=== PATIENT | female | born 1980 | race Caucasian/White ===

== ENCOUNTER 2016-08-29 14:33 | Outpatient (CLI) | payer OTHER ==
[2016-08-29 14:58] LABS: BASOPHILS % (AUTO) 0.4 % (0.0-3.0); EOSINOPHILS # (AUTO) 0.1 K/ul (0.0-0.7); EOSINOPHILS % (AUTO) 1.3 % (0.0-7.0); HEMATOCRIT 46.4 % (37.0-47.0); HEMOGLOBIN 16.1 g/dl (12.0-16.0); IMMATURE GRANULOCYTE % (AUTO) 0.7 % (0.0-5.0); LYMPHOCYTES # (AUTO) 2.4 K/uL (0.60-3.4); LYMPHOCYTES % (AUTO) 25.5 (10.0-50.0); MEAN CORPUSCULAR HEMOGLOBIN 31.6 pg (27.0-31.0); MEAN CORPUSCULAR HGB CONC 34.7 (31.8-35.4); MEAN CORPUSCULAR VOLUME 91.2 fl (81.0-99.0); MONOCYTES # (AUTO) 0.7 K/uL (0.4-2.0); MONOCYTES % (AUTO) 7.9 (0-10); NEUTROPHILS # (AUTO) 5.9 K/ul (2.0-6.9); NEUTROPHILS % (AUTO) 64.2; PLATELET COUNT 271 10^3/uL (140-440); RED BLOOD COUNT 5.09 10^6/ul (4.20-5.40); WHITE BLOOD COUNT 9.21 K/ul (4.6-10.2)
--- NOTE | 2016-08-29 15:00 | DI ---
EXAM: Radiographs, left shoulder HISTORY: Left shoulder pain. COMPARISON: None available. TECHNIQUE: Two views. FINDINGS: Bone mineralization is normal. Bone island noted in the glenoid. There is no fracture o r dislocation. Mild acromioclavicular joint space narrowing noted. Subchondral cyst is seen in the acromion. No focal soft tissue abnormality is seen. IMPRESSION: Mild acromioclavicular osteoarthritis.
[2016-08-29 15:16] LABS: ALBUMIN/GLOBULIN RATIO 1.03; ANION GAP 11.8; BILIRUBIN,TOTAL 0.56 mg/dL (0.00-1.20); BUN/CREATININE RATIO 9.63; CALCIUM 9.5 mg/dL (8.2-10.2); CHOL/HDL RATIO 2.7 (4.5-5.5); CREATININE 0.83 mg/dL (0.60-1.30); POTASSIUM 3.8 mmol/L (3.5-5.10); TOTAL PROTEIN 7.9 g/dL (6.4-8.2)
== END 2016-08-29 14:34 | disposition home or self-care (01) ==
LOC: RAD 14:33
PROVIDERS: ATTEND Nurse Practitioner Family
DX: M25.512 Pain in left shoulder (principal); F41.9 Anxiety disorder, unspecified; E78.5 Hyperlipidemia, unspecified
CPT/HCPCS: 36415; 80053; 80061; 85025

== ENCOUNTER 2016-09-19 10:25 | Outpatient (CLI) ==
[2016-09-19 10:53] LABS: BASOPHILS % (AUTO) 0.5 % (0.0-3.0); EOSINOPHILS # (AUTO) 0.1 K/ul (0.0-0.7); EOSINOPHILS % (AUTO) 1.3 % (0.0-7.0); HEMATOCRIT 42.7 % (37.0-47.0); IMMATURE GRANULOCYTE % (AUTO) 0.2 % (0.0-5.0); LYMPHOCYTES # (AUTO) 2.3 K/uL (0.60-3.4); LYMPHOCYTES % (AUTO) 27.5 (10.0-50.0); MEAN CORPUSCULAR HGB CONC 35.1 (31.8-35.4); MONOCYTES # (AUTO) 0.6 K/uL (0.4-2.0); MONOCYTES % (AUTO) 7.3 (0-10); NEUTROPHILS # (AUTO) 5.3 K/ul (2.0-6.9); NEUTROPHILS % (AUTO) 63.2; PLATELET COUNT 232 10^3/uL (140-440); RED BLOOD COUNT 4.69 10^6/ul (4.20-5.40); WHITE BLOOD COUNT 8.35 K/ul (4.6-10.2)
[2016-09-19 11:04] LABS: BILIRUBIN,URINE Negative (NEGATIVE); KETONES,URINE Negative (NEGATIVE); LEUKOCYTE ESTERASE ,URINE Trace (NEGATIVE); NITRITE,URINE Negative (NEGATIVE); PROTEIN,URINE 1+ (NEGATIVE); URINE, BLOOD Trace-intact (NEGATIVE)
[2016-09-19 11:07] LABS: ALBUMIN 3.8 g/dL (3.4-5.0); ALBUMIN/GLOBULIN RATIO 1.09; ANION GAP 11.8; BILIRUBIN,TOTAL 0.74 mg/dL (0.00-1.20); BUN/CREATININE RATIO 13.15; CHOL/HDL RATIO 2.8 (4.5-5.5); CREATININE 0.76 mg/dL (0.60-1.30); POTASSIUM 3.8 mmol/L (3.5-5.10); TOTAL PROTEIN 7.3 g/dL (6.4-8.2)
[2016-09-19 11:20] LABS: ADD URINE MICROSCOPIC YES
[2016-09-19 11:21] LABS: BACTERIA,URINE TRACE (NOT PRESENT)
== END 2016-09-19 10:26 | disposition home or self-care (01) ==
LOC: LAB 10:25
PROVIDERS: ATTEND Nurse Practitioner Family
DX: E78.5 Hyperlipidemia, unspecified (principal); F41.9 Anxiety disorder, unspecified; R31.9 Hematuria, unspecified
CPT/HCPCS: 36415; 80053; 80061; 81001; 85025; 87086; 87186

== ENCOUNTER 2017-05-09 09:43 | Outpatient (CLI) ==
--- NOTE | 2017-05-09 11:23 | DI ---
EXAM: Four views of the right knee. History: Right knee pain. Comparison: Right knee radiograph 04/24/2016 Findings: No acute fracture or dislocation. No abnormal calcifications or radiopaque foreign bodies . Joint spaces are preserved. Impression: Unremarkable exam
--- NOTE | 2017-05-09 11:25 | DI ---
EXAM: Two views of the chest. History: Obesity, chest pain. Comparison: None available. Findings: Heart size is within normal limits. No focal consolidation. No appreciable pleural fluid and no pneumothorax. No acute osseous abnormalities. Impression: No acute cardiopulmonary process
== END 2017-05-09 09:44 | disposition home or self-care (01) ==
LOC: LAB 09:43
PROVIDERS: ATTEND Nurse Practitioner Family
DX: E78.5 Hyperlipidemia, unspecified (principal); M25.561 Pain in right knee; E66.9 Obesity, unspecified
CPT/HCPCS: 36415; 80053; 80061; 84439; 84443; 85025; 93005; 93010

== ENCOUNTER 2017-05-21 06:38 | Outpatient (CLI) ==
--- NOTE | 2017-05-22 09:54 | ECHOSTRESS ---
Date of Exam: 05/21/17 Ordering Physician: PHILIP GUTIERREZ DIRECTOR OF RECRUITMENTIngridC Reason for Echo: ABNORMAL EKG, STRESS TEST--NO ISCHEMIA M-Mode Normal Adult Results LV Dimensions Normal Adult Results AoV Opening excursions >1.6 LVEDD-base- 3.5-5.8 Ao root dimensions 2.0-3.7 LVESD-base- 3.1-4.6 L. Atrium dimensions 1.9-3.8 Post. Wall thickness 0.8-1.1 IV septum (thickness) 0.7-1.2 Post. Wall excursion 0.72-1.3 Septal motion Systolic motion R. Ventricular cavity 1.5-2.0 LVEF 60% Paradoxical septal wall motion 2-D: NORMAL LEFT VENTRICULAR CONTRACTILITY--RESTING AND POST EXERCISE M-MODE: MV: AV: TV: PV: CHAMBER SIZE: WALL MOTION: NORMAL LEFT VENTRICULAR CONTRACTILITY--RESTING AND POST EXERCISE PERICARDIUM: INTERPRETATION: 1. NORMAL LEFT VENTRICULAR CONTRACTILITY--RESTING AND POST EXERCISE MTDD
--- NOTE | 2017-05-22 10:06 | STRESSECHO ---
Date of Test: 05/21/17 Reason for Exam: ABNORMAL EKG, PALPITATIONS Ordering Physician: PHILIP GUTIERREZ LDR NURSE-C Current Medications: NONE Physical Findings: S1, S2, NO S3 Resting EKG: SINUS RHYTHM/ NO ACUTE CHANGES Target Heart Rate: 158/186 STAGE MPH/GRADE HEART RATE BPM BLOOD PRESSURE mmhg RHYTHM S-T SEGMENT +/- UP DOWN SYMPTOMS,COMMENTS At Rest 66 118/78 SR X NONE 1 1.7/10% 130 128/80 SR X NONE 2 2.5/12% 3 3.4/14% 4 4.2/16% 5 5.0/18% Immediately after 156 SR X FATIGUE Durations of Exercise: 4:59 Maximum Heart Rate Reached: 156 Reason for Termination: FATIGUE 4 MINUTES POST EXERCISE: HR 97 BPM, BP 122/78 MMHG, SR, +/-, NO COMMENTS INTERPRETATION: 98% OXYGEN SATURATION WITH EXERCISE ON ROOM AIR 1. NO EVIDENCE OF ISCHEMIA BY ST-T WAVE 2. NO CHEST PAIN OR CHEST DISCOMFORT 3. BLOOD PRESSURE RESPONSE NORMAL 4. NO ARRHYTHMIAS NORMAL LEFT VENTRICULAR CONTRACTILITY RESTING AND POST EXERCISE MTDD
== END 2017-05-21 06:39 | disposition home or self-care (01) ==
LOC: CAR 06:38
PROVIDERS: ATTEND Nurse Practitioner Family
DX: R94.31 Abnormal electrocardiogram [ECG] [EKG] (principal)

== ENCOUNTER 2017-12-25 13:58 | Outpatient (CLI) ==
--- NOTE | 2017-12-25 16:31 | DI ---
EXAM: Three views of the right ankle. History: Right ankle pain and effusion. Findings: No acute fracture or dislocation. No abnormal calcifications or radiopaque foreign bodies . Mild to moderate lateral soft tissue swelling. Joint spaces are preserved. Impression: No acute osseous abnormality. Lateral soft tissue swelling
== END 2017-12-25 13:59 | disposition home or self-care (01) ==
LOC: RAD 13:58
PROVIDERS: ATTEND Emergency Medicine
DX: M25.471 Effusion, right ankle (principal)

== ENCOUNTER 2018-01-16 07:40 | Outpatient (CLI) | END 2018-01-16 07:41 | disposition home or self-care (01) | LOC: LAB 07:40 | PROVIDERS: ATTEND Nurse Practitioner Family | DX: R25.2 Cramp and spasm (principal) | CPT/HCPCS: 36415; 80053 ==

== ENCOUNTER 2018-01-28 07:21 | Outpatient (CLI) | END 2018-01-28 07:22 | disposition home or self-care (01) | LOC: LAB 07:21 | PROVIDERS: ATTEND Nurse Practitioner Family | DX: E87.1 Hypo-osmolality and hyponatremia (principal); R94.5 Abnormal results of liver function studies | CPT/HCPCS: 36415; 80053 ==

== ENCOUNTER 2018-11-14 20:48 | Emergency (ER) ==
[2018-11-14 21:22] VITALS: TEMP 98.5; BMI 42.5
--- NOTE | 2018-11-14 22:05 | CT ---
EXAM: CT head without contrast. HISTORY: Left-sided numbness. PROCEDURE: Contiguous axial CT images of the head without contrast with coronal and sagittal reforma ts. FINDINGS: The ventricles and basal cisterns are normal in size and configuration. No evidence of ma ss or midline shift. No intracranial hemorrhage or evidence of large vessel infarct. No extra-axial fluid collection. The paranasal sinuses and mastoid air cells are well-aerated and normal in appear ance. Impression: Negative CT of the head.
--- NOTE | 2018-11-14 22:32 | CT ---
EXAM: CT maxillofacial without contrast. HISTORY: Left facial numbness. PROCEDURE: Contiguous axial CT images of the face and orbits without contrast with coronal and sagit joy reformats. FINDINGS: The bones are intact with no evidence of fracture. The temporomandibular joints are mainta ined. The orbits are normal in appearance. The paranasal sinuses and mastoid air cells are normal i n appearance. Impression: Negative CT of the face and orbits.
[2018-11-14] MEDS ORDERED: ZESTRIL PO STA (22:35)
[2018-11-14] MEDS ORDERED: ASPIRIN CHEWABLE PO STA (22:36)
--- NOTE | 2018-11-14 22:38 | ED.PDOC ---
General ED Provider: Dr. JOSE DYSON-ER Chief Complaint: Non-specific Complaint Stated Complaint: i was eating and my left cheek was numb Time Seen by Physician: 20:50 Mode of Arrival: Walk-In Information Source: Patient Exam Limitations: No limitations Primary Care Provider: DIAMANTE MAYNARD Nursing and Triage Documentation Reviewed and Agree: Yes Does patient meet sepsis criteria?: No System Inflammatory Response Syndrome: Not Applicable Sepsis Protocol: For patient's 13 years and over: Temp is 96.8 and below OR 101 and greater Pulse >90 BPM Resp >20/minute Acutely Altered Mental Status Are patient's symptoms suggestive of a new infection, such as: -Pneumonia -Skin, Soft Tissue -Endocarditis -UTI -Bone, Joint Infection -Implantable Device -Acute Abdominal Infection -Wound Infection -Meningitis -Blood Stream Catheter Infection -Unknown Neurological Complaint Exam - Neurological Deficit Complaint/Exam Patient Complains of: Reports: Abnormal sensation Symptom Onset Unknown: No Symptom Onset Date: 11/14/18 Symptom Onset Time: 19:00 Onset: Sudden Symptoms Are: Still present Timing: Constant Initial Severity: Mild Current Severity: Mild Location: Reports: Facial Character: Reports: Numbness. Denies: Tingling, Paresthesia, Motor weakness, Paralysis Aggravating: Reports: None Alleviating: Reports: None Associated Signs and Symptoms: Denies: Confusion, Agitation, Responsiveness, LOC , Headache, Fever, Nuchal rigidity, Recent trauma, Remote trauma, Recent illness CVA Risk Factors: Reports: Hypertension Carotid Bruit Present: No Glascow Coma Scale (see protocol): 15 Meningeal Signs Positive: No Focal Weakness: Present: None Focal Sensory Loss: Present: Left facial Gait: Normal Nystagmus Present: No Gag Reflex Present: Yes [id number]: Normal Findings Romberg Test Positive: No Babinski Sign: Negative Right, Negative Left Heel to Toe Normal: Yes Signs of Trauma: No IV t-PA Prescribed: No Differential Diagnoses: CVA, TIA, Cephalgia Quality Indicator For Non-Traumatic Chest Pain/Syncope: EKG Performed Review of Systems - Review Of Systems Constitutional: Reports: No symptoms Eyes: Reports: No symptoms Ears, Nose, Mouth, Throat: Reports: No symptoms Respiratory: Reports: No symptoms Cardiac: Reports: No symptoms GI: Reports: No symptoms : Reports: No symptoms Musculoskeletal: Reports: No symptoms Skin: Reports: No symptoms Neurological: Reports: Numbness Endocrine: Reports: No symptoms Hematologic/Lymphatic: Reports: No symptoms All Other Systems: Reviewed and Negative Past Medical History - Past Medical History Previously Healthy: Yes Endocrine: Reports: None Cardiovascular: Reports: Hypertension Respiratory: Reports: None Hematological: Reports: None Gastrointestinal: Reports: None Genitourinary: Reports: None Neuro/Psych: Reports: None Musculoskeletal: Reports: None Cancer: Reports: None Last Menstrual Period: now - Surgical History General Surgical History: Reports: Unknown - Family History Family History: Reports: Unknown - Social History Smoking Status: Never smoker Hx Substance Use: No Alcohol Screening: None Physical Exam - Physical Exam Appearance: Well-appearing, No pain distress, Well-nourished Eyes: YOLANDE, EOMI, Conjunctiva clear ENT: Ears normal, Nose normal, Oropharynx normal Neck: Supple Respiratory: Airway patent, Breath sounds clear, Breath sounds equal, Respirations nonlabored Cardiovascular: RRR GI/: Soft, Nontender, No masses, Bowel sounds normal, No Organomegaly Musculoskeletal: Normal strength, ROM intact, No edema, No calf tenderness Skin: Warm, Dry, Normal color Neurological: Alert, Oriented, Focal Deficit (left facial numbness) Psychiatric: Affect appropriate, Mood appropriate - NIH Stroke Scale 1a. Level of Consciousness: 0=Alert and keenly responsive 1b. Level of Consciousness Questions: 0=Answers correctly to two questions 1c. Level of Consciousness Commands: 0=Performs two tasks correctly 2. Best Gaze: 0=Normal 3. Visual: 0=No visual loss 4. Facial Palsy: 0=Normal 5a. Motor Left Arm: 0=No drift,arm holds 90 degrees for 10 sec., leg 30 degrees for 5 sec. 5b. Motor Right Arm: 0=No drift,arm holds 90 degrees for 10 sec., leg 30 degrees for 5 sec. 6a. Motor Left Le=No drift,arm holds 90 degrees for 10 sec., leg 30 degrees for 5 sec. 6b. Motor Right Le=No drift,arm holds 90 degrees for 10 sec., leg 30 degrees for 5 sec. 7. Limb Ataxia: 0=Absent 8. Sensory: 1=Mild to moderate sensory loss 9. Best Language: 0=No aphasia 10. Dysarthria: 0=Normal 11. Extincion and Inattention: 0=Normal Stroke Scale Total: 1 Interpretation - Radiology Interpretation Radiology Interpretation By: Radiologist Radiology Results: Negative Exam Interpreted: CT Scan - EKG Interpretation Time of EKG #1: 22:40 Rate: Normal Rhythm: Sinus Ectopy: None Tribune: NL ST Segment: Normal Interpretation: nsr Re-Evaluation - Re-Evaluation Time of Re-Evaluation: 22:41 Status: Improved (numbness tingling has resolved) Vital Signs Stable: Yes Pain Level: 0 Appearance: NAD Lungs: Clear Skin: Warm and Dry Neuro: Alert and Oriented X3 CV: RRR Critical Care Note - Critical Care Note Total Time (mins): 0 Course - Course Hematology/Chemistry: 11/14/18 21:19 11/14/18 21:19 Orders, Labs, Meds: Lab Review 11/14/18 11/14/18 11/14/18 21:19 21:19 21:19 WBC 12.07 H RBC 4.79 Hgb 15.3 Hct 43.7 MCV 91.2 MCH 31.9 H MCHC 35.0 RDW Coeff of Kory 11.9 Plt Count 266 Immature Gran % (Auto) 0.2 Neut % (Auto) 68.8 Lymph % (Auto) 22.0 Mcleod % (Auto) 7.5 Eos % (Auto) 1.3 Baso % (Auto) 0.2 Immature Gran # (Auto) 0.0 Neut # (Auto) 8.3 H Lymph # (Auto) 2.7 Mcleod # (Auto) 0.9 Eos # (Auto) 0.2 Baso # (Auto) 0.0 ESR 12 Sodium 140.3 Potassium 3.75 Chloride 100.8 Carbon Dioxide 27.6 Anion Gap 15.65 BUN 9.2 Creatinine 0.99 Estimated GFR (MDRD) 63.00 BUN/Creatinine Ratio 9.29 Glucose 102.4 Calcium 9.53 Total Bilirubin 0.52 AST 34.5 ALT 37.1 H Alkaline Phosphatase 94.3 Total Creatine Kinase 32.2 Troponin I < 0.012 Total Protein 8.29 H Albumin 4.65 Globulin 3.64 Albumin/Globulin Ratio 1.27 Serum , Qual Negative Orders Category Date Time Status EKG-(ED ONLY) Stat CARDIO 11/14/18 21:09 Ordered CBC W/ AUTO DIFF Stat LAB 11/14/18 21:19 Completed COMPREHENSIVE METABOLIC PANEL Stat LAB 11/14/18 21:19 Completed CREATINE KINASE Stat LAB 11/14/18 21:19 Completed ESR Stat LAB 11/14/18 21:19 Completed SERUM Stat LAB 11/14/18 21:19 Completed TROPONIN I Stat LAB 11/14/18 21:[address] HEAD W/O CONTRAST Stat RADS 11/14/18 21:[address] MAXILLOFACIAL W/O CONTRAST Stat RADS 11/14/18 21:09 Completed Vital Signs: Temp Pulse Resp BP Pulse Ox 11/14/18 22:00 168/126 H 11/14/18 20:49 98.5 F 94 H 20 158/106 H 99 Departure - Departure Time of Disposition: 22:41 Disposition: HOME SELF-CARE Discharge Problem: Left facial numbness HTN (hypertension) Qualifiers: Hypertension type: essential hypertension Qualified Code(s): I10 - Essential ( primary) hypertension Instructions: Paresthesia (ED) Condition: Good Pt referred to PMD for follow-up: Yes IPMP verified?: No Additional Instructions: return if symptoms return---monitor bp Allergies/Adverse Reactions: Allergies tramadol Allergy (Mild, Verified 11/14/18 20:57) Itching Disposition Discussed With: Patient, Family
[2018-11-14 23:08] VITALS: BP 132/91
== END 2018-11-14 23:08 | disposition home or self-care (01) ==
LOC: ED 20:48
DX: R20.0 Anesthesia of skin (principal); I10 Essential (primary) hypertension
CPT/HCPCS: 36415; 80053; 82550; 84484; 84703; 85025; 85651; 93005; 93010; 99283